=== PATIENT | female | born 1995 | race African-American/Black ===

== ENCOUNTER 2023-10-15 18:39 | Emergency (ER) | payer SELFPAY ==
[2023-10-15 19:15] VITALS: BP 122/70
[2023-10-15 19:28] LABS: ALBUMIN 3.7 g/dL (3.2-5.0); ALKALINE PHOSPHATASE 96 u/l (38-126); ANION GAP 11 (6-22 (CALC)); BILIRUBIN, TOTAL 0.3 mg/dL (0.02-1.3); BUN 14 mg/dL (7-17); BUN/CREATININE RATIO 21 (12-20 (CALC)); CARBON DIOXIDE 24 mmol/l (22-30); CHLORIDE 110 mmol/l (95-108); CREATININE 0.6 mg/dL (0.5-1.0); GFR FOR AFR.AMER. > 60 ML/MIN (>=60 (CALC)); GFR OTHER RACES > 60 ML/MIN (>=60 (CALC)); POTASSIUM 3.6 mmol/l (3.5-5.1); SGOT/AST 29 u/l (14-36); SODIUM 141 mmol/l (137-146); TOTAL PROTEIN 7.4 g/dL (6.3-8.2)
[2023-10-15 19:54] LABS: BASO% 0.2 % (0-3); EOS% 1.5 % (0-8); HEMATOCRIT 23.7 % (37.0-47.0); IMMATURE GRANULOCYTES 0.4 % (0.0-5.0); LYMPH% 8.3 % (15-41); MEAN CELL VOLUME 69.5 fL CALC (80.0-100.0); MEAN CORPUSCULAR HGB 19.6 pG CALC (26.0-32.0); MEAN CORPUSCULAR HGB CONC 28.3 g/dL CAL (32.0-36.0); MONO% 4.8 % (2-13); NEUT# 10.43 thou/uL (2.00-7.15); NEUT% 84.8 % (42-76); RED BLOOD COUNT 3.41 mill/uL (4.20-5.60); RED CELL DISTRI WIDTH 18.8 % (11.5-15.5)
[2023-10-15 19:56] LABS: HEMOGLOBIN 6.7 g/dl (12.0-16.0)
[2023-10-15] MEDS ORDERED: CHROMAGEN1 CAP PO (20:43)
== END 2023-10-15 22:14 | disposition home or self-care (01) | DRG 918 ==
LOC: ED 18:39
PROVIDERS: Family Medicine
DX: T58.8X1A Toxic effect of carbon monoxide from other source, accidental (unintentional), initial encounter (principal); G44.40 Drug-induced headache, not elsewhere classified, not intractable; R06.00 Dyspnea, unspecified; D64.9 Anemia, unspecified; F17.210 Nicotine dependence, cigarettes, uncomplicated